=== PATIENT | female | born 1945 | race Caucasian/White ===

== ENCOUNTER → 2016-08-21 | Outpatient (CLI) | payer MEDICARE, OTHER ==
[~2016-08-21] MED LIST: ACET-2321 PO; ALEN35TA32 PO; ASPI-917 PO; BUSP10TA3 PO; CALC600T12 PO; LISI10TA7 PO; MULT-806 PO; OMEGA-3 PO; POLY17PO6 PO; PRAV40TA3 PO; SERT100T12 PO; TOLT4CAP13 PO; TRAM50TA53 PO
--- NOTE | 2016-08-21 13:04 | DI ---
EXAM: US VENOUS DUPLEX, LOWER EXT RT LOCATION OF DICTATION: [facility]. HISTORY: ITS.REASON: M79.89 Other specified soft tissue disorders March 26, 2016. Replacement. One week pain and swelling. COMPARISON: None available. DESCRIPTION: Color Doppler interrogation was performed. There is no evidence for deep venous thrombosis. There is good color Doppler flow, normal venous wave forms with respiratory variation and augmentation and compressibility from the common femoral vein, SFV, popliteal vein to at least the veins in the distal calf(s). Incidental note is made of multiple lymph nodes in the groin region which have a normal echogenic fatty slava and are likely reactive and are not pathologically enlarged. IMPRESSION: No evidence for deep venous thrombosis. The technologist conveyed the results to the ordering clinician, TYLER ALLRED immediately after the exam which is consistent with the above findings at 1202 hours. .
== END ==
LOC: IMA 10:58
PROVIDERS: ATTEND Physician Assistant Surgical
DX: M79.89 Other specified soft tissue disorders (principal)

== ENCOUNTER → 2016-09-02 | Outpatient (CLI) | payer MEDICARE, OTHER ==
[2016-09-02 12:21] LABS: BASOPHILS % (AUTO) 0.4 % (0-2); EOSINOPHILS # (AUTO) 0.1 T/MM3 (0-0.5); EOSINOPHILS % (AUTO) 1.4 % (0-4); HCT - HEMATOCRIT 38.6 % (36-46); HGB - HEMOGLOBIN 12.6 GM/DL (12-16); LYMPHOCYTES # (AUTO) 1.5 T/MM3 (1-4.8); LYMPHOCYTES % (AUTO) 25.9 % (23-45); MEAN CORPUSCULAR HGB 28.6 UUG (26-34); MEAN CORPUSCULAR HGB CONC(MCHC 32.6 GM/DL (31-37); MEAN CORPUSCULAR VOLUME 87.7 UM3 (80-100); MEAN PLATELET VOLUME 9.4 UM3 (9.4-12.4); MONOCYTES # (AUTO) 0.4 T/MM3 (0-0.8); MONOCYTES % (AUTO) 7.6 % (0-9.0); NEUTROPHILS #(AUTO)-ABSOLUTE 3.7 T/MM3 (1.8-7.7); NEUTROPHILS % (AUTO) 64.7 % (33-66); WBC - WHITE BLOOD COUNT 5.7 T/MM3 (4.5-11.0)
== END ==
LOC: LAB 12:02
PROVIDERS: ATTEND Physician Assistant Surgical
DX: M25.561 Pain in right knee (principal)
CPT/HCPCS: 36415; 85025; 85652; 86140